=== PATIENT | female | born 1995 | race Caucasian/White ===

== ENCOUNTER 2018-05-27 19:00 | Emergency (ER) | payer OTHER ==
--- NOTE | 2018-05-27 19:15 | EDPHY ---
H & P Stated Complaint: L hand lac -feeling syncopal Time Seen by Provider: 05/27/18 19:10 HPI/ROS: Chief complaint: Left hand laceration History of present illness: This is a 22-year-old female who presents to the emergency department for evaluation of the lacerations to her left hand. Patient tripped and fell while holding a glass bottle. It broke and cut her hand. Since then she has had pain, there has been bleeding at the side of the cuts that has been controlled with a dressing. She has been having difficulty moving the fingers. There is some numbness in them. When she looked at the wound site when she came into the emergency room she felt like she was going to pass out but did not. She now feels well. Her tetanus is up-to-date. - Personal History LMP (Females 10-55): Unknown Current Tetanus/Diphtheria Vaccine: Unsure Current Tetanus Diphtheria and Acellular Pertussis (TDAP): Unsure - Medical/Surgical History Hx Asthma: No Hx Chronic Respiratory Disease: No Hx Diabetes: No Hx Cardiac Disease: No Hx Renal Disease: No Hx Cirrhosis: No Hx Alcoholism: No Hx HIV/AIDS: No Hx Splenectomy or Spleen Trauma: No Other PMH: denies - Social History Smoking Status: Never smoked - Physical Exam Exam: General: Alert, nontoxic Skin: There is a laceration on the flexor surface at the base of the thumb, there is also a laceration along the medial aspect of the pointer finger. Musculoskeletal: She cannot flex the thumb a. She is having difficulty flexing the pointer finger. She has extending those fingers well. She is moving the other fingers well. Vascular: The pointer finger appear slightly dusky but capillary refill is less than 2 sec. Capillary refill brisk in all other fingers. Radial pulse 2 + . Neurologic: Sensation is decreased in the thumb and pointer finger using light touch and two-point discrimination, sensation intact in all other fingers. Constitutional: Initial Vital Signs Temperature (C) 36.7 C 05/27/18 19:05 Heart Rate 76 05/27/18 19:05 Respiratory Rate 18 05/27/18 19:05 Blood Pressure 67/45 L 05/27/18 19:05 O2 Sat (%) 97 05/27/18 19:05 O2 Delivery Mode Room Air Allergies/Adverse Reactions: No Known Allergies Allergy (Unverified 05/27/18 19:03) Home Medications: Medication Instructions Recorded Cephalexin [Keflex] 500 mg PO TID 5 Days cap 05/27/18 Hydrocodone/APAP 5/325 [[place] 1 tab PO Q6H #10 tab 05/27/18 5/325 (*)] Medical Decision Making - Diagnostics Imaging Results: Imaging Impressions Hand X-Ray 05/27/18 19:20 Impression: No fracture of the left hand. Imaging: I viewed and interpreted images myself ED Course/Re-evaluation: Patient is seen in conjunction with my secondary supervising physician Dr. Mervin Iqbal. Patient presents for lacerations to her left thumb. I am concerned for nerve, tendon and blood vessel injury. X-ray does not show foreign body. I have consulted with Hand surgery, Dr. Lancaster. He saw the patient in the emergency room, he cleaned and repaired the wounds. A splint was placed. Patient has been given a g of Ancef. She is discharged home on Keflex and pain medication. Patient can follow up in his clinic for further evaluation and care. Home care was discussed with the patient. Return precautions were given. Differential Diagnosis: Included but not limited to laceration, deep structure injury, foreign body contamination - Data Points Medications Given: Discontinued Medications Cephalexin (Keflex 500 Mg Prepack#4) 1 btl TAKEHOME EDNOW ONE PRN Reason: Protocol Stop: 05/27/18 20:59 Last Admin: 05/27/18 22:41 Dose: 1 btl Cefazolin Sodium/Dextrose (Ancef 1 Gm (Premix)) 50 mls @ 200 mls/hr IV EDNOW ONE PRN Reason: Protocol Stop: 05/27/18 19:50 Last Admin: 05/27/18 19:49 Dose: 50 mls Departure - Departure Disposition: Home, Routine, Self-Care Clinical Impression: Hand laceration involving tendon Qualifiers: Encounter type: initial encounter Laterality: left Qualified Code(s): S61.412A - Laceration without foreign body of left hand, initial encounter; S66.922A - Laceration of unspecified muscle, fascia and tendon at wrist and hand level, left hand, initial encounter; S66.922A - Laceration of unspecified muscle, fascia and tendon at wrist and hand level, left hand, initial encounter Condition: Good Instructions: Hydrocodone/Acetaminophen (By mouth), Care For Your Stitches (ED) , Laceration (ED), Acute Wounds (ED) Additional Instructions: Please follow-up with your hand surgeon, Dr. Дмитрий Lancaster as discussed with him, contact information is attached to this information sheet. In regards to pain control see the following: Use ibuprofen 600 mg 3 times a day for the next 2-3 days for pain In addition You have been prescribed [place] for pain. [place] contains Tylenol, do not take extra Tylenol/acetaminophen/Apap with it. It is sedating. Take antibiotics as prescribed until finished unless told otherwise by your doctors If symptoms worsen or new symptoms develop return to the emergency department for recheck Referrals: NONE *PRIMARY CARE P,. [Primary Care Provider] - As per Instructions Дмитрий Lancaster MD [Medical Doctor] - As per Instructions Prescriptions: Cephalexin [Keflex] 500 mg PO TID 5 Days cap Hydrocodone/APAP 5/325 [[place] 5/325 (*)] 1 tab PO Q6H #10 tab
[2018-05-27] MEDS ORDERED: CEPHALEXIN 500MG PREPACK#4 BTL TAKEHOME ONE (20:58)
[2018-05-27 22:44] VITALS: BP 112/62
--- NOTE | 2018-05-30 10:04 | GCON ---
EMERGENCY DEPARTMENT ENCOUNTER DATE OF CONSULTATION: 05/27/2018 CHIEF COMPLAINT: Left hand laceration. HISTORY OF PRESENT ILLNESS: The patient is a 22-year-old, [id number] woman who is a student. She was carrying a beer bottle and slipped on the ice. She crossed the beer bottle underneath her left hand and sustained a complex laceration to her left hand. She noticed acute onset of bleeding. She has had numbness. She was wrapped up by her friends and brought to the emergency department. She did feel faint and lightheaded. Currently, her only complaint is her left hand. She denies any other focal trauma or injuries. She has no neck, back, or lower back complaints. PAST MEDICAL HISTORY: Denies. PAST SURGICAL HISTORY: Denies. MEDICATIONS: None. ALLERGIES: None. SOCIAL HISTORY: Denies any tobacco. Moderate alcohol use. REVIEW OF SYSTEMS: Negative for current chest pain, shortness of breath, belly pain, back pain, numbness, tingling, or other joint-related complaints. OBJECTIVE: GENERAL: This is a healthy young woman who is pleasant and cooperative with examination. EXTREMITIES: Examination of her left hand reveals a complex laceration. She has a laceration across the palmar aspect of her thumb, along the MCP joint in a curvilinear fashion that extends to the ulnar border. There is a mid palmar curvilinear laceration approximately 2 cm in length and a complex laceration along the base of the index finger extending into the web space between the index and long finger and along the ulnar border of the index finger to the proximal interphalangeal joint. She has decreased sensation across the ulnar aspect of her index finger. Subjectively, she has sensation to light touch across the radioulnar aspect of the thumb, and long, ring and small fingers are unaffected. She is unable to flex the IP joint of her thumb. She is able to flex the MCP joint of her thumb. Index finger, she has both FDS and FDP function, with discomfort and guarding. IMAGING DATA: Radiographs demonstrate no fracture or foreign body to her left hand. PROCEDURE NOTE: In the emergency department, a local anesthetic was placed by me through all the laceration sites. These were copiously irrigated with pulsatile lavage solution and sutured at the skin only across the open laceration sites. The wounds were approximated. There was slight pulsatile bleeding along the ulnar aspect of the index finger, which was tamponaded with pressure from the skin. A sterile dressing was applied, followed by a thumb spica splint. She has both tendon and nerve damage to her thumb and index finger. I have recommended surgical stabilization in a delayed fashion in the operative setting. I have outlined the surgical procedure, risks, benefits, and recovery with her. She will follow up for further evaluation. ADDENDUM There is no evidence of vascular perfusion compromise. She does have slight pulsatile bleeding along the ulnar aspect of the index finger. Brisk capillary refill to the thumb, index, middle, ring and small fingers, with 2-second capillary refill following compression. /[id number]/MODL and [id number]/MODL MTDD
== END 2018-05-27 22:44 | disposition home or self-care (01) ==
PROC: 0HQGXZZ Repair Left Hand Skin, External Approach (ICD-10-PCS; principal; 2018-05-27)
DX: S61.412A Laceration without foreign body of left hand, initial encounter (principal); W01.198A Fall on same level from slipping, tripping and stumbling with subsequent striking against other object, initial encounter; W25.XXXA Contact with sharp glass, initial encounter
CPT/HCPCS: 96365; J0690

== ENCOUNTER 2018-06-01 14:41 | Day surgery (SDC) | payer OTHER ==
[2018-06-01] MEDS ORDERED: ceFAZolin 2 GM/DEXTROSE 100 ML IV ONE (14:49)
[2018-06-01] MEDS ORDERED: LR 1,000 ML IV ONE (14:50)
[2018-06-01] MEDS ORDERED: BACITRACIN 50,000 UNITS/10 ML SYR IRR ONE (15:12)
[2018-06-01] MEDS ORDERED: BUPIVACAINE/EPI 0.5% 30 ML SDV ONE (15:12)
[2018-06-01] MEDS ORDERED: MIDAZOLAM 2 MG/2 ML VIAL IVP ONE (15:43)
[2018-06-01] MEDS ORDERED: ONDANSETRON 4 MG/2 ML VIAL IVP PRN (15:44)
[2018-06-01] MEDS ORDERED: PROMETHAZINE HCL 25 MG/ML INJ IVP PRN (15:44)
[2018-06-01] MEDS ORDERED: HYDROCODONE/APAP 5/325 TAB PO PRN (15:44)
[2018-06-01] MEDS ORDERED: ALBUTEROL 3 ML DEYVIAL IH PRN (15:44)
[2018-06-01] MEDS ORDERED: ACETAMINOPHEN 500 MG TAB PO PRN (15:44)
[2018-06-01] MEDS ORDERED: HYDROmorphONE/DILAUDID 2 MG/ML INJ IVP PRN (15:44)
[2018-06-01] MEDS ORDERED: oxyCODONE IR 5 MG TAB PO PRN (15:44)
[2018-06-01] MEDS ORDERED: NALOXONE HCL 0.4 MG/ML INJ IVP PRN (15:44)
[2018-06-01] MEDS ORDERED: fentaNYL 100 MCG/2 ML INJ IVP PRN (15:44)
--- NOTE | 2018-06-01 15:45 | PDANEPAE ---
ANE History of Present Illness Left Hand ANE Past Medical History - Cardiovascular History Hx Hypertension: No Hx Arrhythmias: No Hx Chest Pain: No Hx Coronary Artery / Peripheral Vascular Disease: No Hx CHF / Valvular Disease: No Hx Palpitations: No - Pulmonary History Hx COPD: No Hx Asthma/Reactive Airway Disease: No Hx Recent Upper Respiratory Infection: No Hx Oxygen in Use at Home: No Hx Sleep Apnea: No Sleep Apnea Screening Result - Last Documented: Negative - Neurologic History Hx Cerebrovascular Accident: No Hx Seizures: No Hx Dementia: No - Endocrine History Hx Diabetes: No - Renal History Hx Renal Disorders: No - Liver History Hx Hepatic Disorders: No - Neurological & Psychiatric Hx Hx Neurological and Psychiatric Disorders: No - Cancer History Hx Cancer: No - Congenital Disorder History Hx Congenital Disorders: No - GI History Hx Gastrointestinal Disorders: No - Other Health History Other Health History: NEG - Chronic Pain History Chronic Pain: Yes - Surgical History Prior Surgeries: WISDOM TEETH ANE Review of Systems Review of Systems: - Exercise capacity METS (RN): 5 METS ANE Patient History - Allergies Allergies/Adverse Reactions: No Known Allergies Allergy (Unverified 05/27/18 19:03) - Home Medications Home Medications: Ibuprofen 05/31/18 [Last Taken 05/31/18] - NPO status NPO Since - Liquids (Date): 06/01/18 NPO Since - Liquids (Time): 10:00 NPO Since - Solids (Date): 05/31/18 NPO Since - Solids (Time): 21:30 - Smoking Hx Smoking Status: Never smoked - Family Anes Hx Family Hx Anesthesia Complications: NEG ANE Labs/Vital Signs - Vital Signs Blood Pressure: 118/74 Heart Rate: 55 Respiratory Rate: 16 O2 Sat (%): 98 Height: 167.64 cm Weight: 58.967 kg ANE Physical Exam - Airway Neck exam: FROM Mallampati Score: Class 2 Mouth exam: normal dental/mouth exam - Pulmonary Pulmonary: clear to auscultation - Cardiovascular Cardiovascular: regular rate and rhythym - ASA Status ASA Status: I ANE Anesthesia Plan Anesthesia Plan: GA w LMA
[2018-06-01] MEDS ORDERED: MIDAZOLAM 2 MG/2 ML VIAL ONE (15:46)
--- NOTE | 2018-06-01 16:09 | PDHPUP ---
History & Physical Update H&P update statement: This history and physical update is based on an assessment of the patient which was completed after admission or registration (within 24 hours), but prior to the surgery/procedure. H&P update: H&P reviewed & patient examined, no change in patient's condition since H&P completed
[2018-06-01] MEDS ORDERED: PROPOFOL/EMULSION 500 MG/50 ML BOTTLE IV ONE ×2 (16:22→17:40)
[2018-06-01] MEDS ORDERED: fentaNYL 100 MCG/2 ML INJ ONE ×3 (16:22→20:16)
[2018-06-01] MEDS ORDERED: ONDANSETRON 4 MG/2 ML VIAL ONE (16:35)
[2018-06-01] MEDS ORDERED: DEXAMETHASONE 4 MG/ML VIAL ONE ×2 (16:35)
[2018-06-01] MEDS ORDERED: ceFAZolin 1 GM VIAL ONE (19:37)
--- NOTE | 2018-06-01 20:01 | POSTANESTH ---
Post Anesthetic Evaluation Cardiovascular Status: Normal, Stable Respiratory Status: Normal, Stable Level of Consciousness/Mental Status: Moderately Sleepy Pain Control: Adequate, Prn Tx Ordered Nausea/Vomiting Control: Adequate, Prn Tx Ordered
[2018-06-01] MEDS ORDERED: HYDROCODONE/APAP 5/325 TAB ONE (20:15)
[2018-06-01 21:19] VITALS: BP 104/66
--- NOTE | 2018-06-02 07:55 | GOP ---
DATE OF OPERATION: SURGEON: Andrew Rojo MD ANESTHESIA: General. PREOPERATIVE DIAGNOSIS: 1. left thumb flexor pollicis longus laceration in zone 2. 2. left thumb ulnar digital nerve laceration 3. left index finger ulnar digital nerve laceration POSTOPERATIVE DIAGNOSIS: same PROCEDURE PERFORMED: 1. Repair of left thumb flexor pollicis longus in zone 2. 2. Repair of left thumb ulnar digital nerve with AxoGen nerve conduit. 3. Repair of left index finger ulnar digital nerve with AxoGen nerve conduit. FINDINGS: ESTIMATED BLOOD LOSS: Less than 5 cc. INDICATIONS: Lucy is a 22-year-old female who sustained this injury 5 days ago when she slipped and fell on her porch holding a beer glass. The glass broke in her hand, cutting her hand. She was seen in the ER, evaluated. She was seen by my partner. The wound was irrigated and closed. I then saw her in clinic several days later and evaluated the hand. She had numbness in the distribution of the thumb ulnar digital nerve and the index finger ulnar digital nerve, in addition to no active flexion of the FPL. Thus, she was indicated for operative repair in a timely fashion. Discussed risks and benefits of surgery. Risks include pain, bleeding, infection, damage to surrounding structures, need for further operations, incomplete return of nerve function, neuroma formation, late tendon rupture, stiffness, weakness, wound healing complications. She understood these risks and she wished to proceed. DESCRIPTION OF PROCEDURE: The patient was seen in the preoperative holding area. She was given opportunity to ask more questions. All the questions were answered. Consent was signed. Surgical site was marked. She was transferred to the operative suite. Care was taken to pad all bony plants on the [facility]. Time-out was called including surgical and anesthesia teams confirming surgical site and procedure to be performed. The left upper extremity was prepped and draped in the usual sterile fashion. 2 g of Ancef IV was given prior to incision. I first began by marking out incisions to extend both over the thumb and index finger to explore. I then remove the sutures. Esmarch was used to exsanguinate the left upper extremity. The tourniquet was inflated to 250 mmHg. I first began with the index finger. She had a long laceration at the ulnar aspect longitudinally of the lateral ulnar aspect of the finger. I extended this proximally and distally and dissected down to the level of the digital nerve. This was the ulnar digital nerve. I dissected it all the way to the bifurcation and it was intact there, and then I dissected up to the level of the DIP flexion crease and it was lacerated just proximal to the DIP flexion crease. Bringing the ends together, she had only about 2 or 3 mm of gap , which I was able to reapproximate with 9-0 nylon epineural suture utilizing the operating microscope. I then utilized half of a 3x 15 AxoGuard connector, wrapped it around the nerve for a conduit-assisted repair, wrapped it around the nerve and then I secured it with 8-0 nylon suture, placed several deep tensioning sutures with this. I examined the repair and I was very happy with the repair. I then turned my attention to the thumb. I explored the thumb. She had a laceration of the FPL in zone 2, lacerating part of her oblique fully ; however, a portion of the betsy was intact. I identified the proximal stump , pulled it through the betsy, secured the tendon with a hypodermic needle, and then I began a 4-stranded cruciate repair, bringing the tendon together nicely. I added 2 more strands to the repair with a [id number] and then I finished the repair with an epitendinous stitch, a locking, running 6-0 Prolene. After this was done, I turned my attention to the ulnar digital nerve. I dissected the nerve out on both sides. I then brought the nerve together and with the thumb in full extension there was about a centimeter gap. I felt that I would repair this with a conduit-assisted repair. I chose a 2 x 15 mm conduit, placed the conduit over the proximal stump. This fit in very nicely. Then, I pulled the conduit up and I placed the distal stump into the conduit and it also fit nicely. I then secured it with 2 or 3 sutures at each end using 8-0 nylon. The tourniquet was then let down. All bleeding was controlled. The fingers were well perfused. She was closed with a combination of interrupted 4-0 nylon and 4-0 chromic. A sterile dressing was applied. A splint was applied, a dorsal block splint for the thumb. She tolerated the procedure well and was taken to the PACU in stable condition. IMPLANTS USED: For the left index finger, 3 x 15 AxoGuard connector (conduit) with an about 3 mm gap. For the thumb, a 2 x 15 mm AxoGuard connector (conduit ) with about a 1 cm gap. POSTOPERATIVE CONDITION: Stable. POSTOPERATIVE PLAN: The patient will follow up with a hand therapist next week. She will follow up with me in 10-14 days and will then begin a flexor tendon protocol. /[id number]/MODL MTDD
== END 2018-06-01 21:05 | disposition home or self-care (01) ==
LOC: FSGY 14:41
PROVIDERS: ATTEND Orthopaedic Surgery Hand Surgery
PROC: 0LQ80ZZ Repair Left Hand Tendon, Open Approach (ICD-10-PCS; principal; 2018-06-01 16:15)
PROC: 01Q40ZZ Repair Ulnar Nerve, Open Approach (ICD-10-PCS; principal; 2018-06-01 16:15)
DX: S61.022A Laceration with foreign body of left thumb without damage to nail, initial encounter (principal); S66.02 Laceration of long flexor muscle, fascia and tendon of thumb at wrist and hand level; S64.491A Injury of digital nerve of left index finger, initial encounter; W00.9XXA Unspecified fall due to ice and snow, initial encounter; W25.XXXA Contact with sharp glass, initial encounter; Y92.009 Unspecified place in unspecified non-institutional (private) residence as the place of occurrence of the external cause; Y93.9 Activity, unspecified
CPT/HCPCS: C1763; J0690; J1100; J2250; J2405; J2704; J3010